=== PATIENT | male | born 1950 | race Caucasian/White ===

== ENCOUNTER 2019-09-15 16:35 | Emergency (ER) | payer OTHER ==
[~2019-09-15] VITALS: Ht 167.6 cm; Wt 72.6 kg
[2019-09-15 18:20] LABS: HEMATOCRIT 41.7 % (42.0-52.0); HEMOGLOBIN 14.1 gm/dL (14.0-18.0); MCH 30.7 pg (26.0-34.0); MCHC 33.9 g/dL (28.0-37.0); MCV 90.5 fL (80.0-100.0); RBC 4.61 mil/uL (4.50-6.00); RDW 14.7 % (10.5-14.5); WBC 10.6 thou/uL (4.0-11.0)
[2019-09-15 18:28] LABS: CALCIUM 8.8 mg/dL (8.5-10.1); CREATININE 1.1 mg/dL (0.7-1.3); POTASSIUM 4.2 mmol/L (3.5-5.1)
[2019-09-15 18:45] LABS: ALBUMIN 3.3 g/dL (3.4-5.0); TOTAL BILIRUBIN 0.3 mg/dL (<0.1-1.0); TOTAL PROTEIN 7.4 g/dL (6.4-8.2)
[2019-09-15] MEDS ORDERED: METFORMIN HCL500 M3 PO (19:32)
[2019-09-16 00:34] VITALS: BP 127/96
== END 2019-09-15 19:45 | disposition home or self-care (01) ==
LOC: ER 16:35
PROVIDERS: Emergency Medicine
DX: K61.1 Rectal abscess (principal)